=== PATIENT | female | born 1990 | race Caucasian/White ===

== ENCOUNTER 2020-08-13 23:30 | Emergency (ER) | payer MEDICAID ==
[~2020-08-13] VITALS: Ht 157.5 cm; Wt 63.6 kg
[2020-08-13 23:32] VITALS: BP 137/76
[2020-08-14] MEDS ORDERED: PENI500T2 PO ×2 (00:04→00:20)
[2020-08-14] MEDS ORDERED: penicillin V potassium 500mg tablet PO ONE (00:05)
== END 2020-08-14 00:15 | disposition home or self-care (01) ==
LOC: ER 23:31
DX: K08.89 Other specified disorders of teeth and supporting structures (principal); Z79.2 Long term (current) use of antibiotics
CPT/HCPCS: 99283